=== PATIENT | male | born 1990 ===

== ENCOUNTER 2022-09-07 17:45 | Emergency (ER) | payer SELFPAY ==
[2022-09-07] MEDS ORDERED: Sodium Chloride 0.9% 1,000 ML IV ONE (19:29)
[2022-09-07 20:52] LABS: POTASSIUM,K 3.2 mmol/L (3.5-5.1)
== END 2022-09-07 21:31 | disposition home or self-care (01) ==
LOC: MW.ED 17:45
DX: F10.129 Alcohol abuse with intoxication, unspecified (principal); Z72.0 Tobacco use; Y90.8 Blood alcohol level of 240 mg/100 ml or more
CPT/HCPCS: 36415; 80053; 80305; 80307; 81001; 83690; 83735; 85025; 96360; 99284; J7030; 99283